=== PATIENT | male | born 1995 ===

== ENCOUNTER 2024-03-24 08:47 | Outpatient (AMB) | payer MEDICAID, SELFPAY ==
[2024-03-24 08:58] VITALS: BP 91/65; PULSE 118; RESP 18; TEMP 36.4; O2SAT 99; BMI 23.8
--- NOTE | 2024-03-24 08:58 | ACNOTE_ITS ---
Vital Signs 03/24/24 08:58 Height 1.7 m Height Method Stated Weight 69.003 kg Weight Measurement Method Standing Scale BMI 23.8 BP 91/65 Blood Pressure Source Automatic Cuff Blood Pressure Location Left Upper Arm Position Sitting Respiration 18 Pulse 118 H Pulse Source Monitor Temp 97.5 F Temp Source Oral Pulse Oximetry (%) 99 Oxygen Delivery Method Room Air Allergies/Meds Allergies & Medications Allergies No Known Allergies Allergy (Verified 03/24/24 08:59) Medication Reconciliation amlodipine 5 mg tablet 5 mg PO HS htn #30 tabs 12/16/23 [Rx Confirmed 03/24/24] blood-glucose meter (Accu-Chek Guide Glucose Meter) #1 ea 12/16/23 [Rx Confirmed 03/24/24] multivitamin 1 tab PO QDAY #30 tabs 12/16/23 [Rx Confirmed 03/24/24] atorvastatin 40 mg tablet 40 mg PO QHS #30 tabs 03/24/24 [Rx] blood sugar diagnostic (Accu-Chek Guide test strips) #100 ea 03/24/24 [Rx] empagliflozin 25 mg tablet (Jardiance) 25 mg PO QDAY diabetes #30 tabs 03/24/24 [Rx] gabapentin 100 mg capsule 200 mg (2 x 100 mg) PO QHS 1 month #60 caps 03/24/24 [Rx] lancets (Accu-Chek Softclix Lancets) #100 ea 03/24/24 [Rx] lisinopril 20 mg tablet 20 mg PO QDAY #30 tabs 03/24/24 [Rx] metformin 1,000 mg tablet 1,000 mg PO BIDWMEAL #60 tabs 03/24/24 [Rx] semaglutide 7 mg tablet (Rybelsus) 7 mg PO QDAY Diabetes #30 tabs 03/24/24 [Rx] MA Intake Visit Data Collection New Patient or Established: Established Patient (seen at [facility] within 3 years) Seen by Clinical Staff ONLY (RN/MA): No Pain Present Currently: No Pain scale:: 0 Pain Scale Used: ChadwickFranck/Numerical 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 Making Plant 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 Required: Yes PCP or OBGYN visit in last 3 months: Yes Hx Now: No Do You Feel Safe at Home: Yes Authorities Contacted: N/A Smoking Status Smoking Status: Smoker, status unknown Immunization / Flu Flu Vaccine in the Last 12 Months: No Flu Vaccine Exclusion Criteria: No Exclusion Criteria Past Medical History Past Medical History CARDIAC: Positive Hypercholesterolemia and Hypertension Social History SMOKING STATUS: Smoking status: Smoker, status unknown ALCOHOL: Alcohol Intake: Current Patient Portal Questionairmonique Social History Tobacco History Smoking Status: Smoker, status unknown Alcohol History Alcohol Intake: Current Domestic Abuse History Do You Feel Safe at Home: Yes Review of Systems Report any current symptoms Only answer those that you have currently: Past Medical History Past Medical History Have you ever been diagnosed with any of the following: Cardiology Problems Hypercholesterolemia: Yes Hypertension: Yes History of Present Illness HPI Narrative Patient is a 28-year-old male with past medical history of diabetes, hypertension, hyperlipidemia and alcohol use disorder that presents to [facility] for follow-up appointment. Patient is complaining of fatigue and slight dizziness. Patient noted to have soft blood pressure during the current visit. Patient did bring blood pressure cuff readings that show both high blood pressures and very soft blood pressures. Patient is unsure of when he is checking blood pressures at times, but regardless patient is having dizzy spells and soft BPs. Patient is currently drinking 3 tall cans of beer daily, counseled on decreasing amount or cessation and states he will try. Patient also states his sugar levels have not been too well. We will refill patient's medications and get an A1c. Patient is denying any fever, chills, nausea, vomiting, abdominal pain, chest pain, or shortness of breath. Objective/Exam Narrative Physical exam: GENERAL: Alert and oriented x3, no acute distress. HEART: Tachycardic, no murmurs, rubs or gallops. LUNGS: Clear to auscultation bilaterally with symmetrical chest rise. No labored breathing or intercostal retraction. ABDOMEN: Soft, non-tender, no guarding or rebound tenderness. There are no abnormal masses palpated. EXTREMITIES: Non-tender. No edema. Patient is able to move all 4 extremities well, with full ROM. SKIN: Warm and dry, no jaundice or rashes noted. PSYCHIATRIC: Patient is in normal mood and affect, cooperative. Assessment & Plan Diagnosis / Problem List (1) Diabetes mellitus type 2, noninsulin dependent: Status: Acute Assessment & Plan: Last A1c 8.8 about 3 months ago. Patient states he has been having poor diet since last visit due to holidays. Patient states his sugars at home running between 170-230 on average Patient followed up with family and divorce legal assistant which will refer him to a different specialist for possible ocular injections. Plan: Continue Rybelsus 7 mg p.o. daily Continue metformin 1000 mg p.o. twice daily Continue Jardiance 25 mg p.o. daily Sap Bods Developer referral pending Will order A1c and microalbumin. Will adjust medications pending further results. (2) Alcohol use disorder: Status: Acute Assessment & Plan: Patient states he started drinking again during the holidays. States he drinks about 3 tall cans daily. Plan: Patient counseled on alcohol cessation or to at least decrease to 2 alcoholic drinks daily or once DAILY. (3) Hypertension: Status: Acute Qualifiers: Hypertension type: primary hypertension Qualified Code(s): I10 - Essential (primary) hypertension Assessment & Plan: Patient still taking lisinopril and amlodipine, but blood pressure has been soft recently. Blood pressure noted to be soft today and has soft readings at home. Patient counseled to have blood pressure diary to better manage blood pressure medication. Plan: Continue lisinopril 20 mg daily Will hold amlodipine 5 mg (4) Hyperlipemia: Status: Acute Qualifiers: Hyperlipidemia type: unspecified Qualified Code(s): E78.5 - Hyperlipidemia, unspecified Assessment & Plan: Patient with diabetes and hypertension with LDL of 90 and triglycerides in the 200s last year. Plan: Continue with atorvastatin 40 mg nightly Plan Will stop amlodipine 5 mg and reassess in 2 weeks. Follow-up A1c and microalbumin. Will adjust diabetes medication next visit pending results. Orders: Orders Microalbumin, Ur Rnd w Creat Today E11.40 - Type 2 diabetes mellitus with diabetic neuropathy, unspecified, E11.9 - Type 2 diabetes mellitus without complications Ambulatory Hemoglobin A1C Today E11.40 - Type 2 diabetes mellitus with diabetic neuropathy, unspecified, E11.9 - Type 2 diabetes mellitus without complications Office Procedures [facility] Level of Care Nursing/Assessment Patient Status: Established Patient Nursing Assessment/Reassessment: Medication Reconciliation, Update PMH in EMR and Vital Signs Coordination of Care: Complex Care and Chronic Disease 1-5, Consent,records obtained, informed consent, Education Simp Pt/Fam, Lab and Imaging orders and Staff clarify orders Established Patient Charge Established Patient Point Assignment: 100 Established Patient Point Charge: EP Level 3 (80-115)
== END 2024-03-24 10:11 | disposition home or self-care (01) ==
LOC: HODAHC 08:47
PROVIDERS: Supervising Provider Internal Medicine; Visit Provider Student in an Organized Health Care Education/Training Program
DX: E11.9 Type 2 diabetes mellitus without complications (principal); Z79.84 Long term (current) use of oral hypoglycemic drugs; I10 Essential (primary) hypertension; E78.5 Hyperlipidemia, unspecified; F10.90 Alcohol use, unspecified, uncomplicated; R53.83 Other fatigue; R42 Dizziness and giddiness
CPT/HCPCS: 99213; G0463

== ENCOUNTER 2024-04-27 08:59 | Outpatient (AMB) | payer MEDICAID, SELFPAY ==
[2024-04-27 09:14] VITALS: BP 129/90; PULSE 97; RESP 16; TEMP 36.8; O2SAT 99
--- NOTE | 2024-04-27 09:14 | ACNOTE_ITS ---
Vital Signs 04/27/24 09:14 Weight 70.534 kg Weight Measurement Method Standing Scale BP 129/90 H Blood Pressure Source Automatic Cuff Blood Pressure Location Left Upper Arm Position Sitting Respiration 16 Pulse 97 Pulse Source Monitor Temp 98.2 F Temp Source Temporal Artery Scan Pulse Oximetry (%) 99 Oxygen Delivery Method Room Air Allergies/Meds Allergies & Medications Allergies No Known Allergies Allergy (Verified 04/27/24 09:22) Medication Reconciliation blood-glucose meter (Accu-Chek Guide Glucose Meter) #1 ea 12/16/23 [Rx Confirmed 04/27/24] multivitamin 1 tab PO QDAY #30 tabs 12/16/23 [Rx Confirmed 04/27/24] atorvastatin 40 mg tablet 40 mg PO QHS #30 tabs 03/24/24 [Rx Confirmed 04/27/24] blood sugar diagnostic (Accu-Chek Guide test strips) #100 ea 03/24/24 [Rx Confirmed 04/27/24] empagliflozin 25 mg tablet (Jardiance) 25 mg PO QDAY diabetes #30 tabs 03/24/24 [Rx Confirmed 04/27/24] gabapentin 100 mg capsule 200 mg (2 x 100 mg) PO QHS 1 month #60 caps 03/24/24 [Rx Confirmed 04/27/24] lancets (Accu-Chek Softclix Lancets) #100 ea 03/24/24 [Rx Confirmed 04/27/24] lisinopril 20 mg tablet 20 mg PO QDAY #30 tabs 03/24/24 [Rx Confirmed 04/27/24] metformin 1,000 mg tablet 1,000 mg PO BIDWMEAL #60 tabs 03/24/24 [Rx Confirmed 04/27/24] semaglutide 14 mg tablet (Rybelsus) 14 mg PO QDAY #30 tabs 04/27/24 [Rx] MA Intake Visit Data Collection New Patient or Established: Established Patient (seen at [facility] within 3 years) Seen by Clinical Staff ONLY (RN/MA): No Pain Present Currently: No Pain scale:: 0 Pain Scale Used: Nguyen/Numerical Tiler'S Assistant Required: No PCP or OBGYN visit in last 3 months: Yes Hx Now: No Do You Feel Safe at Home: Yes Authorities Contacted: N/A Smoking Status Smoking Status: Smoker, status unknown Immunization / Flu Flu Vaccine in the Last 12 Months: No Flu Vaccine Exclusion Criteria: No Exclusion Criteria Past Medical History Past Medical History CARDIAC: Positive Hypercholesterolemia and Hypertension Social History SMOKING STATUS: Smoking status: Smoker, status unknown ALCOHOL: Alcohol Intake: Current Patient Portal Questionaires Social History Tobacco History Smoking Status: Smoker, status unknown Alcohol History Alcohol Intake: Current Domestic Abuse History Do You Feel Safe at Home: Yes Review of Systems Report any current symptoms Only answer those that you have currently: Past Medical History Past Medical History Have you ever been diagnosed with any of the following: Cardiology Problems Hypercholesterolemia: Yes Hypertension: Yes History of Present Illness HPI Narrative Patient is a 28 year old male with a past medical history of hypertesion, hyperlipidemia, and diabetes mellitus type II, non-insulin dependent. Patient is following in the office for labs. A1c worsed from previous reported value at 8.8 in December 2023. Patient continues to take Rybelus, metformin, and Jardiance. May require insulin if numbers do not improved. Consider switching metformin to XL version. Denied hypoglycemic episodes. Improved polydisypia but polyuria still present. Denied headaches. NO loss of consciousness. Patient is complaining of tenderness and increased abnormal tissue growth-at the upper back between trapezius musles. Review of Systems Review of Systems Narrative Review of Systems: General appearance: NO weight change, NO fatigue, NO weakness, NO fever, NO chills, NO night sweats, No cough, abnormal tissue growth at upper back with tenderness and increased in size. Skin: NO rash, NO itching, NO sores, NO moles HEENT: NO Trauma, NO nausea, NO vomiting, NO visual changes, NO blurry vision, NO double vision, NO tinnitus, NO vertigo, NO ear discharge, NO rhinorrhea, NO stuffiness, NO sneezing, NO allergy, NO epistaxis. NO Hoarseness, NO sore throat, NO swollen neck. Cardiac: NO Palpitations, NO dyspnea on exertion, NO orthopnea, NO paroxysmal nocturnal dyspnea, NO edema Respiratory: NO Shortness of Breath, NO Wheezing, NO Cough, NO Sputum, NO hemoptysis GI:NO appetite, NO nausea, NO vomiting, NO dysphagia, NO changes in bowel frequency, NO stool color, NO diarrhea, NO constipation, NO hemetemesis, NO hemorrhoids, NO melena, NO hematechezia, NO abdominal pain, NO jaundice Renal: NO frequency, NO hesitancy, NO urgency, NO hematuria, NO nocturia, NO incontinence MSK: NO muscle weakness, NO gout, NO arthritis, NO muscle stiffness Neuro: NO headaches, NO tremors, NO weakness, NO paralysis, NO seizures, NO loss of consciousness, NO numbness. Hem: NO anemia, NO easy bruising/bleeding, NO petechiae, NO purpura Endo: NO heat/cold intolerance, NO excessive sweating, NO polyuria, NO polydipsia, NO polyphagia, NO thyroid problems, Yes diabetes Pysch: NO mood, NO anxiety, NO depression Objective/Exam Narrative Physical exam: General Appearance: Alert and Orientated x3, well-nourished male who is sitting in exam room in no acute distress Thorax/Lungs: Symmetrical with good expansion. Chest and back non-tender. Lungs resonant to percussion. Breath sounds vesicular without crackles, wheezes, or rhonchi Cardiovascular/Peripheral Vascular: No jugular venous distention noted. S1 and S2 heart sounds regular, no murmurs or extra heart sounds auscultated. No peripheral edema noted. Abdomen: Bowel sounds are active. No tenderness to deep or light palpation. Assessment & Plan Diagnosis / Problem List (1) Diabetes mellitus type 2, noninsulin dependent: Status: Acute Assessment & Plan: Most recent A1c 10.6% (03/24/2023) which worsened since previous results of 8.8 % in December 2023. Patient stated he continues to take his medication as perscribed. Morning fasting glucose number range form 170-186 with single value reported at 234. Counseled patient on food intake. May require Insulin if numbers do not improve. Plan: -follow up with A1c labs in 3 months -Increased Rybelsus from 7 mg -->14 mg once a day -Metformin 1000 mg BID, may need to switch over to XL -Jardiance 25 mg Qday (2) Hypertension: Status: Acute Qualifiers: Hypertension type: primary hypertension Qualified Code(s): I10 - Essential (primary) hypertension Assessment & Plan: Denied any loss of consciousness or pre-syncope since Amlodipine discontinued during previous office visit. Blood pressure during this visit improved at 129/90. Improved Albumin/Creat ratio of 25 () from previous reported lab of 42. Plan: -Continue Lisinopril 20 mg PO QDay (3) Hyperlipemia: Status: Acute Qualifiers: Hyperlipidemia type: unspecified Qualified Code(s): E78.5 - Hyperlipidemia, unspecified Assessment & Plan: Patient continues to take Atorvastatin in the evening after work. Complaining of mild neuropathy, which improved with gabapentin, less likely secondary to medication side effects. Plan: -Continue Atorvastatin 40 mg HS (4) Lipoma of back: Status: Acute Assessment & Plan: Abnormal tissue growth at the upper back between both trazpezius muscles. Now tender and increased in size. Plan: -Referral made for general surgery, Dr. Awan. Orders: Referrals General surgery Yamila Bolaños MD D17.1 - Benign lipomatous neoplasm of skin and subcutaneous tissue of trunk, E11.9 - Type 2 diabetes mellitus without complications Office Procedures [facility] Level of Care Nursing/Assessment Patient Status: Established Patient Nursing Assessment/Reassessment: Medication Reconciliation, Update PMH in EMR and Vital Signs Coordination of Care: Complex Care and Chronic Disease 1-5, Consent,records obtained, informed consent, Education Simp Pt/Fam, Results/Orders obtained and Staff clarify orders Established Patient Charge Established Patient Point Assignment: 90 Established Patient Point Charge: EP Level 3 (80-115)
== END 2024-04-27 10:23 | disposition home or self-care (01) ==
LOC: HODAHC 08:59
DX: E11.9 Type 2 diabetes mellitus without complications (principal); D17.1 Benign lipomatous neoplasm of skin and subcutaneous tissue of trunk; Z79.84 Long term (current) use of oral hypoglycemic drugs; I10 Essential (primary) hypertension; E78.5 Hyperlipidemia, unspecified; Z71.2 Person consulting for explanation of examination or test findings
CPT/HCPCS: 99213; G0463

== ENCOUNTER 2024-06-08 14:58 | Outpatient (AMB) | payer MEDICAID, SELFPAY ==
[2024-06-08 15:16] VITALS: BP 145/97; PULSE 99; RESP 19; TEMP 36.4; O2SAT 98; BMI 24.1
--- NOTE | 2024-06-08 15:16 | GSCOFFNT_ITS ---
Vital Signs - [facility] 06/08/24 15:16 Height 1.75 m Height Method Stated Weight 74.191 kg Weight Measurement Method Standing Scale BMI 24.1 BP 145/97 H Blood Pressure Source Automatic Cuff Blood Pressure Location Left Upper Arm Position Sitting Respiration 19 Pulse 99 Pulse Source Monitor Temp 97.6 F Temp Source Temporal Artery Scan Pulse Oximetry (%) 98 Oxygen Delivery Method Room Air Med/Allergies Allergies & Medications Allergies No Known Allergies Allergy (Verified 06/08/24 15:18) Medication Reconciliation blood-glucose meter (Accu-Chek Guide Glucose Meter) #1 ea 12/16/23 [Rx Confirmed 06/08/24] multivitamin 1 tab PO QDAY #30 tabs 12/16/23 [Rx Confirmed 06/08/24] atorvastatin 40 mg tablet 40 mg PO QHS #30 tabs 03/24/24 [Rx Confirmed 06/08/24] blood sugar diagnostic (Accu-Chek Guide test strips) #100 ea 03/24/24 [Rx Confirmed 06/08/24] empagliflozin 25 mg tablet (Jardiance) 25 mg PO QDAY diabetes #30 tabs 03/24/24 [Rx Confirmed 06/08/24] gabapentin 100 mg capsule 200 mg (2 x 100 mg) PO QHS 1 month #60 caps 03/24/24 [Rx Confirmed 06/08/24] lancets (Accu-Chek Softclix Lancets) #100 ea 03/24/24 [Rx Confirmed 06/08/24] lisinopril 20 mg tablet 20 mg PO QDAY #30 tabs 03/24/24 [Rx Confirmed 06/08/24] metformin 1,000 mg tablet 1,000 mg PO BIDWMEAL #60 tabs 03/24/24 [Rx Confirmed 06/08/24] semaglutide 14 mg tablet (Rybelsus) 14 mg PO QDAY #30 tabs 04/27/24 [Rx Conf irmed 06/08/24] MA Intake Visit Data Collection New Patient or Established: Established Patient (seen at [facility] within 3 years) Seen by Clinical Staff ONLY (RN/MA): No Reason for Visit:: LIPOMA ON BACK OF NECK Pain Present Currently: No Pain scale:: 0 Geothermal Heat Pump 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: 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 PCP or OBGYN visit in last 3 months: Yes Hx Now: No Do You Feel Safe at Home: Yes Authorities Contacted: N/A Smoking Status Smoking Status: Smoker, status unknown Immunization / Flu Flu Vaccine in the Last 12 Months: Yes Flu Vaccine Exclusion Criteria: Already Received Past Medical History Past Medical History CARDIAC: Positive Hypercholesterolemia and Hypertension Social History SMOKING STATUS: Smoking status: Smoker, status unknown ALCOHOL: Alcohol Intake: Current HPI HPI Narrative 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 Pt reports he has noticed it for many years but recently it seems a bit bigger and it is somewhat painful when he moves his neck. He denies any drainage from the area PMH: HTN, HLD, DMII (last A1c 10.6 in 2023, pt states he was having trouble getting his medications but since Apr he has been taking them regularly) PSHx: None Meds: Atorvastatin, jardiance, metformin, rybelsus Allergies: NKDA Social hx: Nonsmoker Family hx: No known malignancies ROS Review of Systems Systems Reviewed: All systems reviewed, normal except as documented Objective/Exam General General Appearance: alert, cooperative and well groomed Neck Neck exam: Present other (posterior neck lesion more pronounced with flexion of the head, soft mobile mass likely lipoma approx 4cm in transverse dimension) Resp Respiratory exam: Absent respiratory distress Assessment & Plan Diagnosis / Problem List (1) Lipoma of back: Status: Acute Assessment & Plan: 28M with HTN, HLD and DMII presenting with a symptomatic lipoma of the posterior neck. I explained risks of excision including infection and recurrence; pt is planned for repeat A1c July 2024 so he is agreeable to following up after this result to discuss excision further Office Procedures [facility] Level of Care Nursing/Assessment Patient Status: Established Patient Nursing Assessment/Reassesment: Medication Reconciliation, Update PMH in EMR and Vital Signs Coordination of Care: Complex Care and Chronic Disease 1-5, Consent,records obtained, informed consent, Education Simp Pt/Fam, Results/Orders obtained and Staff clarify orders Special Needs: Language special needs Established Patient Charge Established Patient Point Assignment: 90 Established Patient Point Charge: Level 3 (80-115) Patient Portal Questionaires Social History Tobacco History Smoking Status: Smoker, status unknown Alcohol History Alcohol Intake: Current Domestic Abuse History Do You Feel Safe at Home: Yes Review of Systems Report any current symptoms Only answer those that you have currently: Past Medical History Past Medical History Have you ever been diagnosed with any of the following: Cardiology Problems Hypercholesterolemia: Yes Hypertension: Yes
== END 2024-06-08 15:27 | disposition home or self-care (01) ==
PROVIDERS: Supervising Provider Surgery; Visit Provider Surgery
DX: D17.1 Benign lipomatous neoplasm of skin and subcutaneous tissue of trunk (principal)
CPT/HCPCS: 99213; G0463

== ENCOUNTER 2025-01-20 13:17 | Outpatient (AMB) | payer MEDICAID, SELFPAY ==
[2025-01-20 13:27] VITALS: BP 143/99; PULSE 101; RESP 20; TEMP 36.6; O2SAT 98; BMI 25.0
--- NOTE | 2025-01-20 13:27 | ACNOTE_ITS ---
Vital Signs 01/20/25 13:27 Height 1.75 m Height Method Stated Weight 76.714 kg Weight Measurement Method Standing Scale BMI 25.0 BP 143/99 H Blood Pressure Source Automatic Cuff Blood Pressure Location Right Upper Arm Position Sitting Respiration 20 Pulse 101 H Pulse Source Monitor Temp 97.8 F Temp Source Temporal Artery Scan Pulse Oximetry (%) 98 Oxygen Delivery Method Room Air Allergies/Meds Allergies & Medications Allergies No Known Allergies Allergy (Verified 01/20/25 13:28) Medication Reconciliation blood-glucose meter (Accu-Chek Guide Glucose Meter) #1 ea 12/16/23 [Rx Confirmed 01/20/25] blood sugar diagnostic (Accu-Chek Guide test strips) #100 ea 03/24/24 [Rx Confirmed 01/20/25] lancets (Accu-Chek Softclix Lancets) #100 ea 03/24/24 [Rx Confirmed 01/20/25] atorvastatin 40 mg tablet 40 mg PO QHS #30 tabs 01/20/25 [Rx] empagliflozin 25 mg tablet (Jardiance) 25 mg PO QDAY diabetes #30 tabs 01/20/25 [Rx] gabapentin 100 mg capsule 200 mg (2 x 100 mg) PO QHS 1 month #60 caps 01/20/25 [Rx] lisinopril 20 mg tablet 20 mg PO QDAY #30 tabs 01/20/25 [Rx] metformin 1,000 mg tablet 1,000 mg PO BIDWMEAL #60 tabs 01/20/25 [Rx] multivitamin 1 tab PO QDAY #30 tabs 01/20/25 [Rx] semaglutide 14 mg tablet (Rybelsus) 14 mg PO QDAY #30 tabs 01/20/25 [Rx] MA Intake Visit Data Collection New Patient or Established: Established Patient (seen at [facility] within 3 years) Seen by Clinical Staff ONLY (RN/MA): No Pain Present Currently: No Pain scale:: 0 Pain Scale Used: Nguyen[employer] Intern Required: No PCP or OBGYN visit in last 3 months: Yes Hx Now: No Do You Feel Safe at Home: Yes Authorities Contacted: N/A Smoking Status Smoking Status: Smoker, status unknown Immunization / Flu Flu Vaccine in the Last 12 Months: No Flu Vaccine Exclusion Criteria: No Exclusion Criteria Past Medical History Past Medical History CARDIAC: Positive Hypercholesterolemia and Hypertension Social History SMOKING STATUS: Smoking status: Smoker, status unknown ALCOHOL: Alcohol Intake: Current Patient Portal Questionaires PHQ-9 PHQ-2 Over the last 2 weeks, how often have you been bothered by any of the following problems? 1. Little interest or pleasure in doing things: not at all 2. Feeling down, depressed, or hopeless: not at all Total score: 0 Social History Tobacco History Smoking Status: Smoker, status unknown Alcohol History Alcohol Intake: Current Domestic Abuse History Do You Feel Safe at Home: Yes Review of Systems Report any current symptoms Only answer those that you have currently: Past Medical History Past Medical History Have you ever been diagnosed with any of the following: Cardiology Problems Hypercholesterolemia: Yes Hypertension: Yes History of Present Illness HPI Narrative Patient is a 28 year old male with a past medical history of hypertesion, hyperlipidemia, and diabetes mellitus type II, non-insulin dependent. Patient is following in the office for labs. Hemoglobin A1c 9.6, morning fasting glucose 226 according to labs, and patient states that he has not been taking prescribed medications for over a month. he has had difficulty with insurance coverage of his medication expenses as he [place] [facility] [place] [facility] for [place]. Related to hypertension, patient admits to intermittent headaches, tinnitus, occasional chest pain with palpitations. He also admits to abnormal sensation, tingling all over his body. He left toes get numb and there is wound about the lateral aspect of the left great toe, which does not hurt. Still noting some polydipsia and polyuria. He has a glucometer at home which he does not use. May require insulin if numbers do not improved. Consider switching metformin to XL version. Patient has seen Dr. George for the evaluation of lipoma behind his stump of the neck. He has been told that the surgical office would reach out to him for re moval, however, he does not complain of pain from it at this time. Review of Systems Review of Systems Narrative Review of Systems: General appearance: NO weight change, NO fatigue, NO weakness, NO fever, NO chills, NO night sweats, No cough, abnormal tissue growth at upper back with t enderness and increased in size. Skin: NO rash, NO itching, NO sores, NO moles HEENT: NO Trauma, NO nausea, NO vomiting, NO visual changes, NO blurry vision, NO double vision, NO tinnitus, NO vertigo, NO ear discharge, NO rhinorrhea, NO stuffiness, NO sneezing, NO allergy, NO epistaxis. NO Hoarseness, NO sore throat, NO swollen neck. Cardiac: NO Palpitations, NO dyspnea on exertion, NO orthopnea, NO paroxysmal nocturnal dyspnea, NO edema Respiratory: NO Shortness of Breath, NO Wheezing, NO Cough, NO Sputum, NO hemoptysis GI:NO appetite, NO nausea, NO vomiting, NO dysphagia, NO changes in bowel frequency, NO stool color, NO diarrhea, NO constipation, NO hemetemesis, NO hemorrhoids, NO melena, NO hematechezia, NO abdominal pain, NO jaundice Renal: NO frequency, NO hesitancy, NO urgency, NO hematuria, NO nocturia, NO incontinence MSK: NO muscle weakness, NO gout, NO arthritis, NO muscle stiffness Neuro: NO headaches, NO tremors, NO weakness, NO paralysis, NO seizures, NO loss of consciousness, NO numbness. Hem: NO anemia, NO easy bruising/bleeding, NO petechiae, NO purpura Endo: NO heat/cold intolerance, NO excessive sweating, NO polyuria, NO polydipsia, NO polyphagia, NO thyroid problems, Yes diabetes Pysch: NO mood, NO anxiety, NO depression Objective/Exam Narrative Physical exam: General Appearance: Alert and Orientated x3, well-nourished male who is sitting in exam room in no acute distress upper back/neck: mobile soft mass measuring about 10cm in diameter at the posterior aspect of the stump of neck Thorax/Lungs: Symmetrical with good expansion. Chest and back non-tender. Lungs resonant to percussion. Breath sounds vesicular without crackles, wheezes, or rhonchi Cardiovascular/Peripheral Vascular: No jugular venous distention noted. S1 and S2 heart sounds regular, no murmurs or extra heart sounds auscultated. No peripheral edema noted. Abdomen: Bowel sounds are active. No tenderness to deep or light palpation. Assessment & Plan Diagnosis / Problem List (1) Diabetes mellitus type 2, noninsulin dependent: Status: Acute Assessment & Plan: HgbA1c 9.6% (01/04/2025), Pt states he has not been taking meds for longer than a month. Patient could not provide morning glucose range, as he has not been using the glucoometer provided to him. morning fasting glucose 226 according to labs. 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 Diabetes self-care reviewed including diet, exercise, footcare, eye care. May require Insulin if numbers do not improve. Plan: -follow up with A1c labs in 3 months -Rybelsus 14 mg once a day -Metformin 1000 mg BID, may need to switch over to XL -Jardiance 25 mg Qday (2) Hypertension: Status: Acute Qualifiers: Hypertension type: primary hypertension Qualified Code(s): I10 - Essential (primary) hypertension Assessment & Plan: Patient has been non-compliant with his meds, failing to refill for longer than 30 days. Blood pressure during this visit 143/99. Patient admitted to occasional sharp headaches, tinnitus, chest discomfort, and palpitations. Plan: -Continue Lisinopril 20 mg PO QDay (3) Hyperlipemia: Status: Acute Qualifiers: Hyperlipidemia type: unspecified Qualified Code(s): E78.5 - Hyperlipidemia, unspecified Assessment & Plan: Patient used to take atorvastatin in late evenings after return from work. Complaining of mild neuropathy, which had improved with gabapentin, less likely secondary to medication side effects. Plan: -Continue Atorvastatin 40 mg HS (4) Lipoma of back: Status: Acute Assessment & Plan: Abnormal tissue growth at the upper back between both trazpezius muscles. Now tender and increased in size. Plan: -follows Dr. Awan. Physician Billing Established Patient Established Patient: E/M Level 3-CPT 96436 Office Procedures [facility] Level of Care Nursing/Assessment Patient Status: Established Patient Nursing Assessment/Reassessment: Medication Reconciliation, Update PMH in EMR and Vital Signs Coordination of Care: Complex Care and Chronic Disease 1-5, Complex Care/Chronic Disease 5 or more, Consent,records obtained, informed consent, Lab and Imaging orders, Results/Orders obtained and Staff clarify orders Established Patient Charge Established Patient Point Assignment: 125 Established Patient Point Charge: Level 4 (120-155)
== END 2025-01-20 14:22 | disposition home or self-care (01) ==
LOC: HODAHC 13:17
PROVIDERS: Supervising Provider Internal Medicine
DX: E11.65 Type 2 diabetes mellitus with hyperglycemia (principal); Z79.84 Long term (current) use of oral hypoglycemic drugs; I10 Essential (primary) hypertension; E78.5 Hyperlipidemia, unspecified; D17.1 Benign lipomatous neoplasm of skin and subcutaneous tissue of trunk; Z71.89 Other specified counseling
CPT/HCPCS: 99214; G0463